=== PATIENT | male | born 1950 | race Caucasian/White ===

== ENCOUNTER 2024-07-28 11:12 | Emergency (ER) | payer MEDICARE ==
[~2024-07-28] VITALS: Ht 180.3 cm; Wt 95.3 kg
[2024-07-28 11:42] VITALS: BP 157/106; PULSE 60; RESP 20; TEMP 98.4
--- NOTE | 2024-07-28 11:53 | ERN ---
ED Note History of Present Illness Stated Complaint: FALL, HIT HEAD Chief Complaint: Trauma Activation Time Seen by MD: 11:45 Dictation: 73-year-old male with a history of DM, HTN presents to the ED for evaluation post fall onset [employer]. Patient reports facial injury, head injury, nausea, and neck pain but denies any LOC, chest pain, abdominal pain or any other associated symptoms at this time. Patient states he was walking up some stairs when he tripped and fell face forward on concrete. Patient states he is on Eliquis but did not take it this morning. Allergies: Coded Allergies: No Known Drug Allergies (Unverified Allergy, Unknown, 07/28/24) Home Meds Active Scripts Cephalexin Monohydrate (Keflex) 500 Mg Cap, 500 MG PO BID for 7 Days, #14 CAP Prov:CRISSY TAPIA MD 07/28/24 Review of System Dictation Constitutional: Positive for head injury, facial injury Negative for fever,chills, and weight loss Eyes: Negative for injury, pain,redness, and discharge ENT: Negative for injury,pain or swelling Cardiovascular: Negative for chest pain, palpitations, and edema Respiratory: Negative for shortness of breath, cough, and wheezing, Abdomen/GI: Positive for nausea Negative for abdominal pain, vomiting, diarrhea, and constipation Back: Negative for injury and pain : Negative for injury, bleeding and discharge MS/Extremity: Positive for neck pain Negative for injury and deformity Skin: Negative for rash, and discoloration Neuro: Negative for headache, weakness, numbness, tingling, and seizure Psych: Negative for suicide ideation, homicidal ideation, and hallucinations Initial Vital Sign VS Vital Signs Date Time Temp Pulse Resp B/P (MAP) Pulse Ox O2 Delivery O2 Flow Rate FiO2 07/28/24 11:42 98.4 60 20 157/106 99 Room Air 0 Physical Exam Dictation General: awake, alert, NAD Head/Face: Normocephalic, forehead abrasion, 1 cm superficial laceration to nasal bridge, no open fracture, tenderness to maxillary and nasal bridge Eyes: PERRL, EOMI, vision at baseline ENT: oral cavity clear, TMs clear, no signs of infection Neck: Trachea midline, supple, no nuchal rigidity Cardiovascular: RRR, normal S1/S2, No MRGs, no JVD Respiratory: CTAB, no respiratory distress, No rales or wheezes Abdomen: Soft, non-tender, non-distended, normal bowel sounds, no guarding or rebound. Skin: Warm, dry, normal turgor, no rash MS/Extremity: Pulses equal, no cyanosis, neurovascular intact, FROM Neuro: COAx4, GCS 15, strength 5/5, CN 2-12 intact, normal cerebellar exam, normal gait, Psych: Normal behavior, mood, and affect normal Results (Laboratory/Radiology) Laboratory/Radiology Laboratory Tests Test 07/28/24 11:49 White Blood Count 6.4 K/uL (4.8-10.8) Red Blood Count 4.66 MIL/uL (4.50-6.20) Hemoglobin 14.0 g/dL (14.0-18.0) Hematocrit 41.9 % (42-54) L Mean Corpuscular Volume 89.9 fL (79-99) Mean Corpuscular Hemoglobin 30.0 pg (27.0-33.0) Mean Corpuscular Hemoglobin Concent 33.4 g/dL (32.0-36.0) Red Cell Distribution Width 13.4 % (11.0-15.5) Platelet Count 121 K/uL (130-400) L Mean Platelet Volume 11.2 fL (7.5-10.5) H Immature Granulocyte % (Auto) 0.6 % (0-1) Neutrophils (%) (Auto) 62.2 % (40.0-77.0) Lymphocytes (%) (Auto) 27.0 % (21.0-51.0) Monocytes (%) (Auto) 7.4 % (3.0-13.0) Eosinophils (%) (Auto) 1.9 % (0.0-8.0) Basophils (%) (Auto) 0.9 % (0.0-5.0) Neutrophils # (Auto) 4.0 K/uL (1.8-7.7) Lymphocytes # (Auto) 1.7 K/uL (1.0-4.8) Monocytes # (Auto) 0.5 K/uL (0.1-1.0) Eosinophils # (Auto) 0.12 K/uL (0.00-0.70) Basophils # (Auto) 0.06 K/uL (0.00-0.20) Absolute Immature Granulocyte (auto 0.04 K/uL (0-1) Nucleated Red Blood Cells 0.0 % (0.0-0.19) Prothrombin Time 10.8 SEC (9.6-11.6) Prothromb Time International Ratio 1.02 (0.85-1.15) Activated Partial Thromboplast Time 23.4 SEC (26.3-35.5) L Sodium Level 143 mmol/L (136-145) Potassium Level 4.2 mmol/L (3.5-5.1) Chloride Level 106 mmol/L (101-111) Carbon Dioxide Level 28 mmol/L (21-32) Blood Urea Nitrogen 18 mg/dL (7-18) Creatinine 0.6 mg/dL (0.5-1.3) Glomerular Filtration Rate Calc 102 mL/min (>90) Random Glucose 95 mg/dL (70-105) Total Calcium 9.0 mg/dL (8.5-10.1) Troponin I High Sensitivity 9 ng/L (4-75) Labs Reviewed?: Yes EKG Comment: EKG 07/28/2024 time 11:41 a.m. ventricular rate 61, MI 219, QRS D, QT 427. Sinus rhythm, borderline prolonged MI interval, nonspecific T abnormalities, inferior leads. No STEMI X-RAY Comment: REASON: FALL TRAUMA ORDERING PHYSICIAN: CRISSY TAPIA MD PROCEDURE: CXR1VW - CHEST 1VW CHEST 1VW HISTORY: Status post fall COMPARISON: None FINDINGS: A frontal projection of the chest was obtained. No acute pulmonary infiltrates is seen. The heart is borderline enlarged. Prominent interstitial markings are seen. Degenerative changes are seen. No evidence of aortic calcification is seen. IMPRESSION: 1. No acute pulmonary infiltrate is seen. DICTATED BY: ROGER LUBIN MD DATE: 07/28/[address] Scan Comment: REASON: FALL TRAUMA ORDERING PHYSICIAN: CRISSY TAPIA MD PROCEDURE: C SPIN WO - CT CERVICAL SPINE W/O CONTRAST CT CERVICAL SPINE W/O CONTRAST HISTORY: No additional history given. COMPARISON: None TECHNIQUE: Multiple sequential axial images of the cervical spine were obtained including post processing sagittal and coronal reconstruction images. Patient was not given contrast through intravenous route. FINDINGS: There are degenerative changes with cervical spine spondylosis. Disc space narrowing are seen at C5-6 and C6-7 levels. Central canal narrowings are seen at these levels. There is straightening of normal lordotic cervical curvature which may be related to muscle spasm or positioning. There is no loss of vertebral height. Evaluation for disc and cord pathology is limited with CT study. No evidence of fracture or dislocation is seen. IMPRESSION: 1. No fracture is seen. DJD with cervical spine spondylosis. CT was performed with one or more following dose reduction techniques: automated exposure control, adjustment of the mA and kv according to patient's size, or use of a iterative reconstruction technique. DICTATED BY: ROGER LUBIN MD DATE: 07/28/24 1214 REASON: FALL TRAUMA ORDERING PHYSICIAN: CRISSY TAPIA MD PROCEDURE: HEAD WO - CT HEAD/BRAIN W/O CONTRAST CT HEAD/BRAIN W/O CONTRAST HISTORY: Status post fall COMPARISON: None TECHNIQUE: Multiple sequential axial images of the head were obtained from the base of the skull through vertex. Patient was not given contrast through intravenous route. FINDINGS: The ventricles and extraventricular CSF spaces are dilated consistent with cerebral atrophy. Nonspecific white matter changes seen. There is no midline shift, mass effect or herniation. No acute intracranial bleed is seen. Visualized portion of the paranasal sinuses are grossly within normal limits. IMPRESSION: 1. No acute intracranial bleed is seen. 2. Atrophy with white matter changes. CT was performed with one or more following dose reduction techniques: automated exposure control, adjustment of the mA and kv according to patient's size, or use of a iterative reconstruction technique. DICTATED BY: ROGER LUBIN MD DATE: 07/28/24 1213 ASON: FALL TRAUMA ORDERING PHYSICIAN: CRISSY TAPIA MD PROCEDURE: MAXFACI WO - CT MAXILLOFACIAL W/O CONTRAST CT MAXILLOFACIAL W/O CONTRAST HISTORY: Status post fall COMPARISON: None TECHNIQUE: Multiple sequential high-resolution axial images of the paranasal sinuses were obtained. Postprocessing sagittal and coronal reconstruction images were also obtained. Patient was not given contrast through intravenous route. FINDINGS: Nasal septum is grossly midline. There is no evidence of mucoperiosteal thickening involving the paranasal sinuses. The infundibula are patent bilaterally. There may be nondisplaced fracture versus spine There is no evidence of air-fluid level in the paranasal sinuses. Parapharyngeal fat planes are preserved bilaterally. IMPRESSION: 1. Nondisplaced fracture of nasal spine. CT was performed with one or more following dose reduction techniques: automated exposure control, adjustment of the mA and kv according to patient's size, or use of a iterative reconstruction technique. DICTATED BY: ROGER LUBIN MD DATE: 07/28/24 1215 ED Course ED Course Orders Procedure Category Date Status Time Ct Head/Brain W/O CT 07/28/24 Resulted Contrast 11:44 Ct Cervical Spine W/O CT 07/28/24 Resulted Contrast 11:44 Ct Maxillofacial W/O CT 07/28/24 Resulted Contrast 11:44 Cbc With Differential LAB 07/28/24 Complete 11:44 Basic Metabolic Panel LAB 07/28/24 Complete 11:44 Troponin I High LAB 07/28/24 Complete Sensitivity 11:44 Chest 1vw RAD 07/28/24 Resulted 11:44 Pt And Ptt LAB 07/28/24 Complete 11:45 12 Lead Ekg Tracing- EKG 07/28/24 Complete Technical 11:45 Dermabond (Dermabond) PHA 07/28/24 In Process 14:00 Dermabond (Dermabond) PHA 07/28/24 In Process 14:00 Current Medications Medications (Trade) Dose Ordered Sig/Coreen Route PRN Reason Start Time Stop Time Status Last Admin Dose Admin Octyl Cyanoacrylate (Dermabond) 1 each ONCE ONCE TP 07/28/24 14:00 07/28/24 14:01 07/28/24 13:35 Octyl Cyanoacrylate (Dermabond) 1 each ONCE ONCE TP 07/28/24 14:00 07/28/24 14:01 Vital Signs Date Time Temp Pulse Resp B/P (MAP) Pulse Ox O2 Delivery O2 Flow Rate FiO2 07/28/24 11:42 98.4 60 20 157/106 99 Room Air 0 Medical Decision Making MDM MDM: Differential diagnosis: Fall, head injury, his own fracture Rationale: Tests considered and ordered secondary to shared decision making include: labs, ECG and radiology Risk of complication and/or morbidity or mortality of patient management: None Medications-Per medication reconciliation Need for hospitalization: Patient does meet criteria for hospitalization. Need for emergency major/minor surgery: No There are no social concerns with this patient. Prescription drug management Prescriptions will include symptomatic care I independently interpreted the test that were performed, results were reviewed by me and considered findings on radiology if ordered. Medical management and examination interpretation discussions were had by me with other qualified healthcare professionals as indicated for the patient's care. Procedure Procedure Dictation: Laceration repair: 1 cm superficial laceration to nasal bridge. Informed consent was obtained before procedure started. The wound was copiously irrigated, no foreign body visualized. Dermabond was placed on the wound. The patient tolerated the procedure well without any complications. Patient was told to follow up with PCP for evaluation of the laceration. Wound Location: face (1 cm superficial laceration to nasal bridge) Wound Length (cm): 1 Wound's Depth, Shape: superficial Wound Explored: clean Wound Repaired With: Dermabond DX & DISP Disposition: Discharge Departure Impression: Primary Impression: Fall Additional Impression: Nasal fracture Condition: Stable Scripts Cephalexin Monohydrate (Keflex) 500 Mg Cap 500 MG PO BID for 7 Days, #14 CAP Prov: CRISSY TAPIA MD 07/28/24 Referrals: SELF,REFERRAL (PCP) CRISSY TAPIA MD Jul 28, 2024 11:53
[2024-07-28 12:01] LABS: BASOPHILS # (AUTO) 0.06 K/uL (0.00-0.20); BASOPHILS % (AUTO) 0.9 % (0.0-5.0); EOSINOPHILS # (AUTO) 0.12 K/uL (0.00-0.70); EOSINOPHILS % (AUTO) 1.9 % (0.0-8.0); HEMATOCRIT 41.9 % (42-54); IMMATURE GRANULOCYTE ABSOLUTE 0.04 K/uL (0-1); LYMPHOCYTES # (AUTO) 1.7 K/uL (1.0-4.8); MEAN CORPUSCULAR HGB CONC 33.4 g/dL (32.0-36.0); MEAN CORPUSCULAR VOLUME 89.9 fL (79-99); MONOCYTES # (AUTO) 0.5 K/uL (0.1-1.0); MONOCYTES % (AUTO) 7.4 % (3.0-13.0); NEUTROPHILS % (AUTO) 62.2 % (40.0-77.0); PLATELET COUNT (AUTO) 121 K/uL (130-400); RED BLOOD CELL COUNT(AUTO) 4.66 MIL/uL (4.50-6.20); RED CELL DISTRIBUTION WIDTH 13.4 % (11.0-15.5); WHITE BLOOD COUNT (AUTO) 6.4 K/uL (4.8-10.8)
--- NOTE | 2024-07-28 12:05 | EKG ---
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
[2024-07-28 12:14] LABS: INR 1.02 (0.85-1.15); PROTHROMBIN TIME 10.8 SEC (9.6-11.6)
[2024-07-28 12:15] LABS: PARTIAL THROMBOPLASTIN TIME 23.4 SEC (26.3-35.5)
--- NOTE | 2024-07-28 12:17 | NUR ---
TRAUMA: PT IN ROOM IN 1150 SEE TRAUMA DOCUMENTS FOR CHARTING
--- NOTE | 2024-07-28 12:18 | HMCIMG ---
CT MAXILLOFACIAL W/O CONTRAST HISTORY: Status post fall COMPARISON: None TECHNIQUE: Multiple sequential high-resolution axial images of the paranasal sinuses were obtained. Postprocessing sagittal and coronal reconstruction images were also obtained. Patient was not given contrast through intravenous route. FINDINGS: Nasal septum is grossly midline. There is no evidence of mucoperiosteal thickening involving the paranasal sinuses. The infundibula are patent bilaterally. There may be nondisplaced fracture versus spine There is no evidence of air-fluid level in the paranasal sinuses. Parapharyngeal fat planes are preserved bilaterally. IMPRESSION: 1. Nondisplaced fracture of nasal spine. CT was performed with one or more following dose reduction techniques: automated exposure control, adjustment of the mA and kv according to patient's size, or use of a iterative reconstruction technique.
--- NOTE | 2024-07-28 12:18 | HMCIMG ---
CT HEAD/BRAIN W/O CONTRAST HISTORY: Status post fall COMPARISON: None TECHNIQUE: Multiple sequential axial images of the head were obtained from the base of the skull through vertex. Patient was not given contrast through intravenous route. FINDINGS: The ventricles and extraventricular CSF spaces are dilated consistent with cerebral atrophy. Nonspecific white matter changes seen. There is no midline shift, mass effect or herniation. No acute intracranial bleed is seen. Visualized portion of the paranasal sinuses are grossly within normal limits. IMPRESSION: 1. No acute intracranial bleed is seen. 2. Atrophy with white matter changes. CT was performed with one or more following dose reduction techniques: automated exposure control, adjustment of the mA and kv according to patient's size, or use of a iterative reconstruction technique.
--- NOTE | 2024-07-28 12:18 | HMCIMG ---
CT CERVICAL SPINE W/O CONTRAST HISTORY: No additional history given. COMPARISON: None TECHNIQUE: Multiple sequential axial images of the cervical spine were obtained including post processing sagittal and coronal reconstruction images. Patient was not given contrast through intravenous route. FINDINGS: There are degenerative changes with cervical spine spondylosis. Disc space narrowing are seen at C5-6 and C6-7 levels. Central canal narrowings are seen at these levels. There is straightening of normal lordotic cervical curvature which may be related to muscle spasm or positioning. There is no loss of vertebral height. Evaluation for disc and cord pathology is limited with CT study. No evidence of fracture or dislocation is seen. IMPRESSION: 1. No fracture is seen. DJD with cervical spine spondylosis. CT was performed with one or more following dose reduction techniques: automated exposure control, adjustment of the mA and kv according to patient's size, or use of a iterative reconstruction technique.
--- NOTE | 2024-07-28 12:34 | HMCIMG ---
CHEST 1VW HISTORY: Status post fall COMPARISON: None FINDINGS: A frontal projection of the chest was obtained. No acute pulmonary infiltrates is seen. The heart is borderline enlarged. Prominent interstitial markings are seen. Degenerative changes are seen. No evidence of aortic calcification is seen. IMPRESSION: 1. No acute pulmonary infiltrate is seen.
[2024-07-28 12:36] LABS: CREATININE 0.6 mg/dL (0.5-1.3); POTASSIUM 4.2 mmol/L (3.5-5.1)
[2024-07-28] MEDS: OCTYL 2-CYANOACRYLATE 1 EACH TP ONE ×2 (13:35)
[2024-07-28] MEDS ORDERED: CEPH500B PO (13:48)
== END 2024-07-28 14:41 | disposition home or self-care (01) ==
LOC: EDH 11:12
DX: S02.2XXA Fracture of nasal bones, initial encounter for closed fracture (principal); S01.81XA Laceration without foreign body of other part of head, initial encounter; W01.0XXA Fall on same level from slipping, tripping and stumbling without subsequent striking against object, initial encounter; Y93.89 Activity, other specified; Y92.89 Other specified places as the place of occurrence of the external cause; Y99.8 Other external cause status
CPT/HCPCS: 12011; 36415; 70450; 70486; 71045; 72125; 80048; 84484; 85025; 85610; 85730; 93005; 99285